=== PATIENT | female | born 1935 | race Two or more races ===

== ENCOUNTER → 2016-09-17 | Outpatient (CLI) | payer MEDICARE, OTHER ==
[~2016-09-17] VITALS: Ht 154.9 cm; Wt 79.0 kg
[~2016-09-17] MED LIST: AMLO1TAB30 PO; BENZ-26 PO; CETI-193 PO; CETI-260 PO; ESOM40CA PO; FLUT16H NASAL; LISI40TA4 PO; METF500T4 PO; METO-325 PO; MONT10TA21 PO; MULT-68 PO; OS500 PO; PROMDM5L PO; RANI150T7 PO; SIMV-260 PO; SITA25 PO
[2016-09-17 12:51] VITALS: BP 113/51
== END | disposition home or self-care (01) ==
LOC: SRCNTR 12:42
PROVIDERS: ATTEND Internal Medicine Critical Care Medicine
DX: E11.9 Type 2 diabetes mellitus without complications (principal); J30.9 Allergic rhinitis, unspecified; G47.33 Obstructive sleep apnea (adult) (pediatric); K21.9 Gastro-esophageal reflux disease without esophagitis; E78.2 Mixed hyperlipidemia; I10 Essential (primary) hypertension
CPT/HCPCS: G0463

== ENCOUNTER → 2016-12-09 | Outpatient (CLI) | payer MEDICARE, OTHER ==
[~2016-12-09] VITALS: Ht 152.4 cm; Wt 78.0 kg
[2016-12-09 12:09] VITALS: BP 122/53
== END | disposition home or self-care (01) ==
LOC: SRCNTR 11:59
PROVIDERS: ATTEND Internal Medicine Critical Care Medicine
DX: J44.9 Chronic obstructive pulmonary disease, unspecified (principal); G47.33 Obstructive sleep apnea (adult) (pediatric); J30.9 Allergic rhinitis, unspecified; E11.9 Type 2 diabetes mellitus without complications; K21.9 Gastro-esophageal reflux disease without esophagitis; E78.2 Mixed hyperlipidemia; I10 Essential (primary) hypertension
CPT/HCPCS: G0463

== ENCOUNTER → 2017-10-26 | Outpatient (CLI) | payer MEDICARE, OTHER ==
[~2017-10-26] VITALS: Ht 152.4 cm; Wt 76.0 kg
[~2017-10-26] MED LIST changes: -AMLO1TAB30 PO; -BENZ-26 PO; +BENZ-51 PO; -CETI-260 PO; +CETI-290 PO; -METF500T4 PO; -METO-325 PO; +METO-558 PO; -RANI150T7 PO; -SIMV-260 PO
[2017-10-26 15:14] VITALS: BP 125/61
== END | disposition home or self-care (01) ==
LOC: SRCNTR 15:13
PROVIDERS: ATTEND Podiatrist Foot & Ankle Surgery
DX: E11.51 Type 2 diabetes mellitus with diabetic peripheral angiopathy without gangrene (principal); L57.0 Actinic keratosis
CPT/HCPCS: G0463

== ENCOUNTER → 2020-12-06 | Outpatient (CLI) | payer MEDICARE ==
[~2020-12-06] MED LIST changes: +AMLO10TA55 PO; -BENZ-51 PO; +BENZ-70 PO; +CALC-885 PO; +CALC3.8S NASAL; -CETI-193 PO; -CETI-290 PO; +CETI-450 PO; -LISI40TA4 PO; +LISI40TA9 PO; -MONT10TA21 PO; +OXYB5TAB27 PO; +PREG50 PO; +ROSU5TAB PO; +SENN-31 PO; -SITA25 PO
== END | disposition home or self-care (01) ==
LOC: RADMN 13:32
PROVIDERS: ATTEND Internal Medicine Critical Care Medicine
DX: I25.10 Atherosclerotic heart disease of native coronary artery without angina pectoris (principal); I70.0 Atherosclerosis of aorta; J32.8 Other chronic sinusitis; M47.814 Spondylosis without myelopathy or radiculopathy, thoracic region; M19.019 Primary osteoarthritis, unspecified shoulder; J18.9 Pneumonia, unspecified organism
CPT/HCPCS: 70486; 71250